=== PATIENT | female | born 2005 | race Caucasian/White ===

== ENCOUNTER 2025-06-27 21:43 | Emergency (ER) | payer BC, SELFPAY ==
[2025-06-27 21:49] VITALS: BP 155/93; PULSE 103; RESP 20; TEMP 37.1; O2SAT 100
[2025-06-27 22:02] LABS: Add Urine Microscopic? YES; Glucose Urine UA Negative (Negative); Leukocyte Esterase Ur 1+ LEU/UL (Negative); Nitrate Urine Negative (Negative); Specific Grav Ur 1.020 (1.010-1.020)
--- NOTE | 2025-06-27 22:04 | ED.GENADULT ---
HPI - General Adult General Chief complaint: Urogenital-Female Stated complaint: UTI Time Seen by Provider: 06/27/25 22:00 Source: patient Mode of arrival: ambulatory Limitations: no limitations History of Present Illness HPI narrative: The patient is a 20 year old woman with onset of urinary symptoms this evening at 6:00 p.m.: The urine is a bit more dark than usual, she feels pressure when she urinates, has urinary frequency and urgency, urinating small amounts each time, with dysuria and small amount of hematuria at the last urination. She has no back pain or abdominal pain. No fevers or chills. She has had urinary tract infections in the past. This is similar to those but stronger in intensity. No nausea vomiting. No other complaints. No history of STDs. Last menstrual cycle approximately 1 week ago. Related Data Allergies Allergy/AdvReac Type Severity Reaction Status Date / Time amoxicillin Allergy Unknown Unknown Verified 06/27/25 21:52 Review of Systems Review of Systems: All systems reviewed & are unremarkable except as noted in HPI and below Constitutional: Constitutional: Denies chills, Denies excessive sweating, Denies fatigue, Denies fever(s), Denies headache(s) and Denies weakness Eyes: Eyes: Denies change in vision and Denies photophobia ENT: Denies dysphagia, Denies dizziness, Denies headache(s), Denies lip swelling, Denies nasal congestion, Denies sore throat and Denies tongue swelling Cardiovascular: Cardiovascular: Denies chest pain, Denies syncope, Denies rapid heart rate and Denies dyspnea Respiratory: Respiratory: Denies cough, Denies dyspnea and Denies wheezing Gastrointestinal: Gastrointestinal: Denies abdominal pain, Denies constipation, Denies dysphagia, Denies diarrhea, Denies nausea and Denies vomiting Genitourinary: Genitourinary: Reports as per HPI, Reports hematuria, Reports nocturia, Denies genital lesions, Reports dysuria and Denies urinary urgency Musculoskeletal: Musculoskeletal: Denies back pain, Denies myalgias, Denies arthralgias, Denies joint swelling and Denies numbness Integumentary/Breasts: Skin/Breast: Denies pruritus, Denies erythema and Denies rash Neurologic: Denies confusion, Denies dizziness, Denies syncope, Denies headache(s), Denies focal weakness, Denies numbness and Denies weakness Psychiatric: Psychiatric: Denies anxiety and Denies confusion Endocrine: Endocrine: Denies excessive sweating and Denies fatigue Hematologic/Lymphatic: Hematologic/Lymphatic: Denies easy bleeding and Denies easy bruising Allergic/Immunologic: Allergic/Immunologic: Denies lip swelling, Denies tongue swelling and Denies wheezing Exam Const: General: healthy appearing, no acute distress, alert and well nourished Nutritional Appearance: well nourished and obese Orientation/consciousness: patient oriented x3 Limitations: no limitations HENMT: Head: normal to inspection Ears: external ears normal Face/Nose/Sinus: normal facial exam Face and sinus: normal facial exam Mouth: Yes moist mucous membranes Throat: posterior oropharynx normal Eyes: Conjunctivae: conjunctivae normal Pupils: Equal, round and reactive pupils present EOM: EOMs intact bilaterally Neck: Neck: normal visual inspection and no meningeal signs Chest: Chest palpation & inspection: normal inspection of the chest and no tenderness Resp: Effort & Inspection: normal respiratory effort and not labored Auscultation: clear to auscultation bilaterally, no crackles, no rhonchi and no wheezes Cardio: Rate: regular rate Rhythm: regular rhythm Heart sounds: no murmurs GI: Inspection: non-distended GI Palp: Yes Soft to palpation, No Tenderness to palpation present (GI), No Guarding due to palpation present (GI) and No Rebound tenderness present : General: Yes no CVA tenderness Back/Spine/Pelvis: Back: no CVA tenderness Cervical Spine: No Cervical spine tenderness Thoracic/Lumbar Spine: No thoracic spinal tenderness Skin: General skin exam: normal color Rashes: no rashes Wounds: no wounds Neuro: General: patient oriented x3, moves all extremities, no meningeal signs, no focal motor deficits and CN's II-XI intact bilaterally Cranial nerves: Yes Equal, round and reactive pupils present Speech: normal speech Motor exam (neuro): 5/5 motor strength present throughout Sensory Exam: normal sensation Extrem: General: normal to inspection and no clubbing, cyanosis or edema Psych: Mental Status: mental status grossly normal Affect: normal affect Course Course Emergency Course: 20-year-old woman with urinary symptoms of urgency frequency dysuria and hematuria with urinating small amounts, consistent with a UTI. Urinalysis positive for a UTI. HCG negative. Keflex antibiotics given in the ER. To continue x 7 days. All questions answered. Vital Signs Vital signs: Vital Signs Temperature 37.1 C 06/27/25 21:49 Pulse Rate 103 H 06/27/25 21:49 Respiratory Rate 20 06/27/25 21:49 Blood Pressure 155/93 H 06/27/25 21:49 Pulse Oximetry 100 06/27/25 21:49 Oxygen Delivery Room Air 06/27/25 21:49 Temperature 37.1 C 06/27/25 21:49 Pulse Rate 103 H 06/27/25 21:49 Respiratory Rate 20 06/27/25 21:49 Blood Pressure 155/93 H 06/27/25 21:49 Pulse Oximetry 100 06/27/25 21:49 Oxygen Delivery Room Air 06/27/25 21:49 Medical Decision Making Vital Signs Vital Signs: Vital Signs Temperature 37.1 C 06/27/25 21:49 Pulse Rate 103 H 06/27/25 21:49 Respiratory Rate 20 06/27/25 21:49 Blood Pressure 155/93 H 06/27/25 21:49 Pulse Oximetry 100 06/27/25 21:49 Oxygen Delivery Room Air 06/27/25 21:49 Temperature 37.1 C 06/27/25 21:49 Pulse Rate 103 H 06/27/25 21:49 Respiratory Rate 20 06/27/25 21:49 Blood Pressure 155/93 H 06/27/25 21:49 Pulse Oximetry 100 06/27/25 21:49 Oxygen Delivery Room Air 06/27/25 21:49 Lab Data Labs: Lab Results 06/27/25 06/27/25 Range/Units 21:54 22:04 Urine Color Red A (Yellow) Urine Appearance Cloudy A (Clear) Urine pH 7.0 (5.0-8.0) Ur Specific [place] 1.020 (1.010-1.020) Urine Protein 2+ H (Negative) Urine Glucose (UA) Negative (Negative) Urine Ketones Negative (Negative) Ur Blood (Man) 3+ H (Negative) Urine Nitrate Negative (Negative) Urine Bilirubin Negative (Negative) Urine Urobilinogen 0.2 (0.2-1.0) mg/dL Leukocyte Esterase Rfl 1+ H (Negative) KING/UL Urine RBC >100 H (0-2) /hpf Urine WBC None seen (0-3) /hpf Ur Squamous Epith Cells Moderate H (Few) /hpf Urine Test Negative Discharge Plan Discharge Clinical Impression: Urinary tract infection Patient Disposition: Home Condition: Stable Instructions: Antibiotic Form, Urinary Tract Infection in Women (ED) Additional Instructions: You have a urinary tract infection. This will be treated with KEFLEX oral antibiotics for 7 days; a first dose was given to you in the Emergency Room tonight. Drink plenty of fluids to stay hydrated Follow up with your primary care provider in the next 1-2 weeks for a re-evaluation Return if worse Patient Language: Korean Prescriptions: New cephalexin 500 mg capsule 500 mg PO Q8H 7 Days Qty: 21 0RF Follow-up/Referrals: UNKNOWN,DOCTOR [Primary Care Provider] - 1 Week Referral Note: Follow-up with your primary care provider in the next week for re-evaluation following a urinary tract infection. Treated with Keflex. Clinical Impression: Urinary tract infection Time of Disposition: 22:24
[2025-06-27 22:12] LABS: Pregnancy On Board Control Positive
[2025-06-27 22:13] LABS: Appearance Urine Cloudy (Clear)
[2025-06-27] MEDS: CEPHALEXIN 500 MG CAPSULE PO (22:20)
[2025-06-27 22:34] VITALS: BP 122/67; PULSE 84; RESP 18; TEMP 36.6; O2SAT 100
== END 2025-06-27 22:35 | disposition home or self-care (01) ==
LOC: CHSED 22:18
PROVIDERS: Emergency Provider Emergency Medicine
DX: N39.0 Urinary tract infection, site not specified (principal)
CPT/HCPCS: 81001; 81025; 99283; A9270